=== PATIENT | male | born 1955 | race Caucasian/White ===

== ENCOUNTER 2021-05-11 15:09 | Emergency (ER) | payer MEDICARE, OTHER ==
[2021-05-11 15:24] VITALS: BP 97/58; PULSE 105; RESP 17; TEMP 98
--- NOTE | 2021-05-11 16:26 | US ---
EXAMINATION TYPE: US venous doppler duplex LE LT DATE OF EXAM: 05/11/2021 4:18 PM COMPARISON: NONE CLINICAL HISTORY: possible DVT. Pt states left leg pain and swelling, no known prior DVT SIDE PERFORMED: Left TECHNIQUE: The lower extremity deep venous system is examined utilizing real time linear array sonog laura with graded compression, doppler sonography and color-flow sonography. VESSELS IMAGED: Common Femoral Vein Deep Femoral Vein Greater Saphenous Vein * Femoral Vein Popliteal Vein Small Saphenous Vein * Proximal Calf Veins (* superficial vessels) Left Leg: Negative for DVT, probable Grimaldo's Cyst left pop fossa= 6.3 x 1.8 x 5.3 cm IMPRESSION: No evidence for DVT.
[2021-05-11] MEDS ORDERED: ACET/COD 300 MG/30 MG STARTER PACK 6 TAB BTL PO STA (17:13)
--- NOTE | 2021-05-11 17:17 | ED ---
Extremity Problem HPI - General Chief complaint: Extremity Problem,Nontraumatic Stated complaint: L leg swelling Time Seen by Provider: 05/11/21 15:31 Source: patient, RN notes reviewed Mode of arrival: ambulatory Limitations: no limitations - History of Present Illness Initial comments: Patient is a 66-year-old male that presents to emergency department complaining of left lower leg swelling and pain with walking. He notes that he has no clotting issues in his medical history. He denies taking any blood thinners. He notes that he was sent by the urgent care for evaluation for possible DVT. She denied any other issues or complaints while sitting up in bed during exam and interview. He was a well-appearing 66-year-old male. He denied any chest pain shortness breath headache nausea vomiting diarrhea constipation fever fatigue chills. - Related Data Allergies Allergy/AdvReac Type Severity Reaction Status Date / Time No Known Allergies Allergy Verified 05/11/21 15:24 Review of Systems ROS Statement: Those systems with pertinent positive or pertinent negative responses have been documented in the HPI. ROS Other: All systems not noted in ROS Statement are negative. Past Medical History Past Medical History: Diabetes Mellitus, Hyperlipidemia, Hypertension History of Any Multi-Drug Resistant Organisms: None Reported Past Surgical History: Tonsillectomy Additional Past Surgical History / Comment(s): carpal tunnel bilat Past Psychological History: No Psychological Hx Reported Smoking Status: Current every day smoker Past Alcohol Use History: None Reported Past Drug Use History: None Reported General Exam Limitations: no limitations General appearance: alert, in no apparent distress Head exam: Present: atraumatic, normocephalic, normal inspection Eye exam: Present: normal appearance, PERRL, EOMI. Absent: scleral icterus, conjunctival injection, periorbital swelling Neck exam: Present: normal inspection Respiratory exam: Present: normal lung sounds bilaterally. Absent: respiratory distress, wheezes, rales, rhonchi, stridor Cardiovascular Exam: Present: regular rate, normal rhythm, normal heart sounds. Absent: systolic murmur, diastolic murmur, rubs, gallop, clicks Extremities exam: Present: normal inspection, full ROM, normal capillary refill. Absent: tenderness, pedal edema, joint swelling, calf tenderness Left Lower Leg exam: Present: full ROM, tenderness (Calf tenderness), swelling (2+). Absent: laceration, ecchymosis, deformity, crepitus, dislocation Neurological exam: Present: alert, oriented X3 Psychiatric exam: Present: normal affect, normal mood Skin exam: Present: warm, dry, intact, normal color. Absent: rash Course Vital Signs 05/11/21 15:20 Temperature 98.0 F Pulse Rate 105 H Respiratory 17 Rate Blood Pressure 97/58 O2 Sat by Pulse 96 Oximetry Medical Decision Making - Medical Decision Making 66-year-old male complaining of left lower leg swelling and some pain on ambulation. Ultrasound left lower extremity ordered. Ultrasound negative for any DVT did show a moderate-sized Grimaldo's cyst. Case discussed with Dr. Choi, patient can discharge home with follow-up to primary care. - Radiology Data Radiology results: report reviewed, image reviewed Left lower extremity ultrasound: Negative for DVT, probable Grimaldo's cyst left popliteal fossa. 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 Follow-up primary care in the next few days. Elevate and compress late help push fluid back up. Take Tylenol 3 as prescribed. Is patient prescribed a controlled substance at d/c from ED?: No Referrals: Nonstaff,Physician [Primary Care Provider] - 1-2 days Time of Disposition: 17:16
== END 2021-05-11 18:00 | disposition home or self-care (01) ==
LOC: EC 15:09
DX: M71.22 Synovial cyst of popliteal space [Baker], left knee (principal); E11.9 Type 2 diabetes mellitus without complications; I10 Essential (primary) hypertension; E78.5 Hyperlipidemia, unspecified; F17.200 Nicotine dependence, unspecified, uncomplicated
CPT/HCPCS: 99283